=== PATIENT | male | born 1980 | race Two or more races ===

== ENCOUNTER 2021-01-18 09:21 | Outpatient (REF) | payer OTHER, SELFPAY | END 2021-01-18 09:22 | disposition home or self-care (01) | LOC: HO.LAB 09:21 | PROVIDERS: Visit Provider Internal Medicine | DX: Z20.822 Contact with and (suspected) exposure to COVID-19 (principal) | CPT/HCPCS: C9803; U0003; U0005 ==

== ENCOUNTER 2021-02-20 12:11 | Outpatient (REF) | payer OTHER, SELFPAY ==
--- NOTE | ~2021-02-20 | XR_ITS ---
EXAMINATION: XR ABDOMEN KUB CLINICAL INDICATION: Calculus of kidney COMPARISON: None TECHNIQUE: AP view of the abdomen. FINDINGS: There are 5 mm radiopaque calculi mid pole left kidney and midpole right kidney. There is scattered stool in the colon without distention. There is no organomegaly. No gross bony abnormality. XR/XR KUB IMPRESSION: Bilateral 5 mm radiopaque calculi mid pole kidney.
[2021-02-20 14:09] LABS: Urine Cytology See Pathology rpt
[2021-02-20 14:22] LABS: Appearance Urine CLEAR; Color Urine YELLOW; Glucose Urine UA NEG (NEG); Leukocyte Esterase Urine NEG (NEG); Nitrite Urine NEG (NEG); Specific Gravity - Urine 1.025 (1.005-1.025); UACC Culture Trigger NO; Urine Blood 2+ (NEG); Urine Ketones NEG (NEG); Urine Protein TRACE MG/DL (NEG-TRACE)
[2021-02-20 14:33] LABS: WBC Urine 0-2 /HPF (0-4)
[2021-02-20 14:34] LABS: Squamous Epithelial Cell Urine TRACE /LPF
== END 2021-02-20 12:12 | disposition home or self-care (01) ==
LOC: HO.LAB 12:11
PROVIDERS: PCP Internal Medicine; Visit Provider Physician Assistant
DX: R31.1 Benign essential microscopic hematuria (principal); N20.0 Calculus of kidney
CPT/HCPCS: 74018; 81001; 87086; 88112

== ENCOUNTER 2021-03-06 15:03 | Outpatient (REF) | payer OTHER, SELFPAY ==
--- NOTE | ~2021-03-06 | US_ITS ---
EXAMINATION: US RETROPERITONEAL LIMITED (RENAL ONLY) CLINICAL INFORMATION: Kidney stone. COMPARISON: KUB 02/20/2021 TECHNIQUE: Grayscale and color imaging of the kidneys FINDINGS: RIGHT KIDNEY: 11.8 x 8 x 5.6 cm (SAG x AP x TRV). The kidney is normal in size, contour, and echogenicity. Renal cortical thickness is normal. There is a linear 8 mm echogenic density in the midpole of the right kidney. This does not demonstrate shadowing or twinkle artifact. Appearance is questionable for a stone versus vascular reflector. No calculi or focal parenchymal lesions. No hydronephrosis. LEFT KIDNEY: 12.4 x 7.2 x 6.6 cm (SAG x AP x TRV). The kidney is normal in size, contour, and echogenicity. Renal cortical thickness is normal. There is a 5 mm echogenic density with twinkle artifact in the midpole suggestive of a stone. No focal parenchymal lesions. No hydronephrosis. US/US renal BI IMPRESSION: 5 mm left renal stone. Question 8 mm right renal stone versus vascular reflector..
== END 2021-03-06 15:04 | disposition home or self-care (01) ==
LOC: HO.US 15:03
PROVIDERS: PCP Internal Medicine; Visit Provider Internal Medicine
DX: N20.0 Calculus of kidney (principal)
CPT/HCPCS: 76775

== ENCOUNTER 2022-04-22 11:57 | Outpatient (REF) | payer OTHER, SELFPAY ==
[2022-04-22 13:44] LABS: Creatinine Urine 224.03 mg/dL; Microalbum/Creatinine Ratio Ur 22.7 ug/mg cr
[2022-04-22 13:52] LABS: Alanine Aminotransferase 15 U/L (0-40); Albumin Level 4.3 g/dL (3.5-5.0); Alkaline Phosphatase 67 U/L (39-117); Anion Gap 13 (12-20); Aspartate Amino Transferase 18 U/L (5-37); Bilirubin Total 0.7 mg/dL (0.0-1.0); Blood Urea Nitrogen 14 mg/dL (9-16); Calcium 9.3 mg/dL (8.4-10.2); Carbon Dioxide 28 mmol/L (22-29); Chloride 103 mmol/L (96-108); Cholesterol 241 mg/dL; Estimated Glomerular Filt Rate > 60; Glucose Fasting 122 mg/dL (60-99); HDL Cholesterol 43 mg/dL; LDL Cholesterol Calculated 181 mg/dl; Potassium 4.4 mmol/L (3.3-5.1); Sodium 140 mmol/L (135-145); Total Protein 6.7 g/dL (6.5-8.0); Triglycerides 85 mg/dL
[2022-04-22 14:09] LABS: Vitamin D 25-OH Total 10.6 ng/mL (>30)
== END 2022-04-22 11:58 | disposition home or self-care (01) ==
LOC: HO.LAB 11:57
PROVIDERS: PCP Internal Medicine; Visit Provider Internal Medicine
DX: Z00.00 Encounter for general adult medical examination without abnormal findings (principal); E78.5 Hyperlipidemia, unspecified; E11.9 Type 2 diabetes mellitus without complications; E55.9 Vitamin D deficiency, unspecified
CPT/HCPCS: 36415; 80053; 80061; 82043; 82306

== ENCOUNTER 2022-12-29 09:05 | Outpatient (AMB) | payer OTHER, SELFPAY ==
--- NOTE | 2022-12-29 09:08 | A.OFFPC_ITS ---
Vital Signs 12/29/22 09:18 Height 6 ft 1 in Weight 244 lb BMI 32.2 BP 138/100 H Blood Pressure Location Lt brachial Position Sitting Pulse 75 Pulse Source Pulse Oximeter Pulse Oximetry (%) 97 Oxygen Delivery Method Room Air Intake Visit Reasons: Annual Exam Intake Note: Patient here for an annual physical exam Pharmaceutical Scientist Required: No Accompanied by: Spouse Allergies barium sulfate Allergy (Unknown, Verified 12/29/22 09:24) inadequate response varenicline [From Chantix] Adverse Reaction (Unknown, Verified 12/29/22 09:24) Inadequate response Medication List - Last Reconciled 12/29/22 by Shelby Seay MD atorvastatin 80 mg PO BEDTIME 90 days blood sugar diagnostic (FreeStyle Lite Strips) Use 1 test strip once a day cholecalciferol (vitamin D3) 50 mcg PO DAILY 90 days lancets (FreeStyle Lancets) Twice a day As directed lisinopril 10 mg PO DAILY 90 days loratadine 10 mg PO DAILY 90 days metformin 500 mg PO BID 90 days Tobacco use date assessed: 04/28/22 Dental Screening Dental Screen Date: 12/29/22 Did you have a dental visit in the last 12 months?: No Did you have a dental problem in the last 6 months where you did not have access to dental care?: No Was dental information given to patient?: Patient has dentist HPI HPI Comments History of Present Illness Details This is a 42-year-old male with diabetes mellitus type 2 that comes for his physical exam. A1c within goal. Last diabetic eye exam was over a year ago. Denies any chest pain or shortness of breath. No fever or cough. Has not take lisinopril yet today. [facility] Medical History Dyslipidemia Callus of foot Obesity (BMI 35.0-39.9 without comorbidity) Diabetes mellitus Essential hypertension Surgical History No pertinent past surgical history Family History Father Bone cancer Diabetes Hypertension Mother Diabetes Hypertension Social History Housing: House Alcohol intake: current Alcohol intake frequency: holidays/special occasions only Alcohol type: beer Patient Tobacco Use Status: Current everyday Tobacco user Tobacco use type: Cigarette Cigarette Packs Per Day: 1 e-Cigarette/Vaping Use: Never Used Second Hand Smoke Exposure: No service: No Current occupational status: employed Current occupational exposures/hazards: No Cognitive needs: No Hearing needs: No Vision needs: No Questionnaire Thrive Questionnaire Date Thrive assessed: 04/28/22 KERVIN-7 AMB Questionnaire KERVIN-7 Date KERVIN - 7 assessed: 04/28/22 Source: Developed by Drs. Chvey Robertson, Tracey Coronado, Rogerio Caraballo and colleagues, with an educational yajaira from [employer]. Review of Systems Const All systems reviewed & are unremarkable except as noted in HPI and below Eyes Reports no additional complaints, Denies change in vision and Denies other visual disturbances Card Denies chest pain at rest, Denies chest pain with activity, Denies edema, Denies irregular heart rhythm, Denies claudication, Denies dyspnea, Denies dyspnea on exertion, Denies orthopnea, Denies paroxysmal nocturnal dyspnea and Denies slow heart rate Resp Denies cough, Denies dyspnea and Denies dyspnea on exertion GI Denies abdominal pain, Denies change in bowel habits, Denies excessive flatus, Denies nausea and Denies vomiting Denies urinary hesitancy, Denies urinary incontinence and Denies urinary urgency Musc Denies abnormal gait, Denies atrophy, Denies deformity and Denies limited range of motion Skin/Breast Denies bleeding lesions, Denies changing lesions and Denies rash Neuro Denies abnormal gait and Denies lack of coordination Physical exam (Primary Care) Vital Signs: Last Vital Signs Pulse 75 12/29/22 09:18 BP 138/100 H 12/29/22 09:18 Pulse Ox 97 12/29/22 09:18 Oxygen Delivery Method Room Air 12/29/22 09:18 BMI result Body Mass Index 32.2 Tobacco/Smoking Status: Tobacco use Status Tobacco use date assessed 04/28/22 12/29/22 09:10 Patient Tobacco Use Status Current everyday Tobacco 12/29/22 09:10 Tobacco use type Cigarette 12/29/22 09:10 e-Cigarette/Vaping Use Never Used 12/29/22 09:10 Thrive Assessment: Date of Thrive Assessment Date Thrive assessed 04/28/22 12/29/22 09:10 Const Orientation/consciousness: patient oriented x3 HENMT Head: Yes normal to inspection, Yes normocephalic and Yes atraumatic Ears: external ears normal Eyes General: appearance normal, both eyes and all related structures Eyelids: Yes eyelids normal Conjunctivae: conjunctivae normal Neck Neck: Yes normal visual inspection and Yes supple Resp Effort & Inspection: normal respiratory effort Auscultation: clear to auscultation bilaterally Cardio Jugular venous distension: no JVD Rate: regular rate Rhythm: regular rhythm Heart sounds: S1 normal heart sound present and S2 normal heart sound present GI Inspection: Yes normal to inspection Palpation (GI): Soft to palpation and nontender Auscultation: normal bowel sounds Skin General skin exam: no rashes or lesions noted Neuro General: patient oriented x3 and no focal motor deficits Extrem General: Yes full ROM Psych Appearance: grossly normal Office Procedures Flu Questionnaire Does the patient have a severe egg allergy?: No Does the patient have severe life threatening allergies?: No Does the patient have a fever or illness today?: No Has the patient ever had Guillain-Gilbert Syndrome?: No Has the patient ever had any past reaction to a flu shot?: No Results AMB Hemoglobin A1c AMB Hemoglobin A1c 6.2 % Last Edit by MARYLU Reich on 12/29/22 09:3 2 Immunizations flu vacc [id number] 6mos up(PF) 60 mcg(15 mcgx4)/0.5 mL IM syringe Performing Provider: Shelby Seay MD Performing Location: [facility] Administered by: MARYLU Reich on 12/29/22 09:46 Dose Route Admin Location Dispensed Lot Number Expiration Date [employer] 0.5 mL IM Right Deltoid 0.5 mL [id number] 08/16/23 05143-659-85 [employer] VIS Given Date VIS Provided VIS Publication Date 12/29/22 Single Vaccine 20 Eligibility Eligibility Date Funding Source Not [facility] Eligible 12/29/22 Private Results Reviewed Results Reviewed: Laboratory Last Values Hgb A1c (Clinic) 6.2 % (4.0-6.0) H 12/29/22 09:10 Assessment and Plan Assessment & Plan (1) Physical exam: Code(s): Z00.00 - Encounter for general adult medical examination without abnormal findings Plan: Repeat in a year. (2) Diabetes mellitus: Code(s): E11.9 - Type 2 diabetes mellitus without complications Plan: Continue metformin. A1c goal is equal or less than 7%. Orders: Orders Lipid Panel Today E78.5 - Hyperlipidemia, unspecified Microalbumin, Random (w Creat) Today E11.9 - Type 2 diabetes mellitus without complications Vitamin D 25-OH Total Today E55.9 - Vitamin D deficiency, unspecified Comprehensive [place]. Panel Fast Today Z00.00 - Encounter for general adult medical examination without abnormal findings AMB Hemoglobin A1c Today E11.9 - Type 2 diabetes mellitus without complications Influenza 0712-2215 Immunization Today Z23 - Encounter for immunization Referrals Ophthalmology Referral E11.9 - Type 2 diabetes mellitus without complications Medications: Refilled lisinopril 10 mg PO DAILY 90 days 90 tabs 3RF Coding Level of Care Code Est Pt Prev Care 40-64y(13721) Diagnoses Physical exam Z00.00 Diabetes mellitus E11.9 Time Spent (min) 33
[2022-12-29 09:18] VITALS: BP 138/100; PULSE 75; O2SAT 97; BMI 32.2
== END 2022-12-29 09:48 | disposition home or self-care (01) ==
PROVIDERS: Visit Provider Internal Medicine
DX: Z00.00 Encounter for general adult medical examination without abnormal findings (principal); E11.9 Type 2 diabetes mellitus without complications; Z23 Encounter for immunization; F17.210 Nicotine dependence, cigarettes, uncomplicated; E55.9 Vitamin D deficiency, unspecified
CPT/HCPCS: 83036; 90471; 90686; 99396

== ENCOUNTER 2024-01-04 09:07 | Outpatient (AMB) | payer OTHER, SELFPAY ==
[2024-01-04 09:12] VITALS: BP 138/90; PULSE 64; O2SAT 96; BMI 35.1
--- NOTE | 2024-01-04 09:12 | A.OFFPC_ITS ---
Vital Signs 01/04/24 09:12 Height 6 ft 1 in Weight 266 lb BMI 35.1 BP 138/90 H Blood Pressure Location Lt brachial Position Sitting Pulse 64 Pulse Source Pulse Oximeter Pulse Oximetry (%) 96 Oxygen Delivery Method Room Air Intake Visit Reasons: PE- NEEDS A1C + PHQ9/THRIVE Intake Note: Patient here for a physical exam Presiding Judge Required: No Accompanied by: Spouse Allergies barium sulfate Allergy (Unknown, Verified 01/04/24 09:35) inadequate response varenicline [From Chantix] Adverse Reaction (Unknown, Verified 01/04/24 09:35) Inadequate response Medication List - Last Reconciled 01/04/24 by Shelby Seay MD atorvastatin 80 mg PO BEDTIME 90 days blood sugar diagnostic (FreeStyle Lite Strips) Use 1 test strip once a day cholecalciferol (vitamin D3) 50 mcg PO DAILY 90 days lancets (FreeStyle Lancets) Twice a day As directed lisinopril 10 mg PO DAILY 90 days loratadine 10 mg PO DAILY 90 days metformin 500 mg PO BID 90 days Tobacco use date assessed: 01/04/24 Dental Screening Dental Screen Date: 01/04/24 Did you have a dental visit in the last 12 months?: No Did you have a dental problem in the last 6 months where you did not have access to dental care?: No Was dental information given to patient?: Patient has dentist HPI HPI Comments History of Present Illness Details The patient is a 43-year-old male presenting with hypertension management and smoking cessation concerns. He is here accompanied by for his physical exam. The patient has a current prescription of atorvastatin 80 mg daily and lisinopril 10 mg once daily for hypertension and hyperlipidemia management. It was discussed that there might be a need to increase lisinopril dosage to twice a day. The patient experiences blood pressure at borderline levels and has been advised to monitor it more regularly. There is a documented allergy to Barium and Chantix, and the patient has a smoking habit of approximately one pack per day. The patient reports a congested feeling, potentially resulting from work outdoors, but denies recent symptoms of fever, chest pain, or dyspnea. The patient's father had diabetes and bone cancer, while the mother lives with diabetes and hypertension. The patient drinks beer on special occasions, less than once a month. Previous interventions targeting smoking cessation included discussions about websites like [employer] and nicotine patches, addressing behavioral impacts and supportive environment necessity. [facility] Medical History Dyslipidemia Callus of foot Obesity (BMI 35.0-39.9 without comorbidity) Diabetes mellitus Essential hypertension Surgical History No pertinent past surgical history Family History Father Bone cancer Diabetes Hypertension Mother Diabetes Hypertension Social History Housing: House Alcohol intake: current Alcohol intake frequency: holidays/special occasions only Alcohol type: beer Patient Tobacco Use Status: Current everyday Tobacco user Tobacco use type: Cigarette Cigarette Packs Per Day: 1 e-Cigarette/Vaping Use: Never Used Second Hand Smoke Exposure: No service: No Current occupational status: employed Current occupational exposures/hazards: No Cognitive needs: No Hearing needs: No Vision needs: No Questionnaire PHQ-9 Over the last 2 weeks, how often have you been bothered by any of the following problems? 1. Little interest or pleasure in doing things: not at all 2. Feeling down, depressed, or hopeless: not at all 3. Trouble falling or staying asleep, or sleeping too much: not at all 4. Feeling tired or having little energy: not at all 5. Poor appetite or overeating: not at all 6. Feeling bad about yourself - or that you are a failure or have let yourself or your family down: not at all 7. Trouble concentrating on things, such as reading the newspaper or watching television: not at all 8. Moving or speaking so slowly that other people could have noticed. Or the opposite - being so fidgety or restless that you have been moving around a lot more than usual: not at all 9. Thoughts that you would be better off or of hurting yourself in some way: not at all Total score: 0 Depression Screening Interpretation: Negative Depression Screening Done: Yes 97862 - PHQ-9 Billing: Yes Source: Developed by Drs. Chevy Robertson, Tracey Coronado, Rogerio Caraballo and colleagues, with an educational yajaira from [employer] Thrive Questionnaire Date Thrive assessed: 01/04/24 I am a: Patient What is your living situation today?: I have a steady place to live Within the past 12 months, did the food you bought not last and you didn't have the money to get more?: Never true Within the past 12 months, did you worry whether your food would run out before you got money to buy more?: Never true Do you have trouble paying for medicines?: No Do you have trouble getting transportation to medical appointments?: No Do you have trouble paying your heating and electricity bill?: No Do you have trouble taking care of your child, family member or friend?: No Do you have trouble with day-to-day activities such as bathing, preparing meals, shopping, managing finances, etc.?: No Are you currently unemployed and looking for a job?: No Are you interested in more education?: No Please select the resources that you would like help with: None Currently or been in a relationship where the following occur: No concerns reported THRIVE Score: 0 AUDIT C Alcohol Use Questionnaire (AUDIT-C) 1. How often do you have a drink containing alcohol?: Monthly or less 2. How many drinks containing alcohol do you have on a typical day when you are drinking?: 1 or 2 3. How often do you have six or more drinks on one occasion?: Never Total Score: 1 Score Reviewed/Action Taken: No KERVIN-7 AMB Questionnaire KERVIN-7 Date KERVIN - 7 assessed: 01/04/24 Feeling nervous, anxious, or on edge: 0 = Not at all Not being able to stop or control worryin = Not at all Worrying too much about different things: 0 = Not at all Trouble relaxin = Not at all Being so restless that it is hard to sit still: 0 = Not at all Becoming easily annoyed or irritable: 0 = Not at all Feeling afraid as if something awful might happen: 0 = Not at all Total KERVIN-7 score (0-4 normal; 5-9 mild; 10-14 moderate; 15-21 severe): 0 Source: Developed by Drs. Chevy Robertson, Rogerio Leonard and colleagues, with an educational yajaira from [employer] KERVIN-7 Assessment Billing KERVIN-7 Assessment Tool: KERVIN-7 Assessment 11958 Review of Systems Const All systems reviewed & are unremarkable except as noted in HPI and below Card Denies chest pain at rest, Denies chest pain with activity, Denies edema, Denies irregular heart rhythm, Denies claudication, Denies orthopnea, Denies paroxysmal nocturnal dyspnea and Denies slow heart rate Physical exam (Primary Care) Vital Signs: Last Vital Signs Pulse 64 01/04/24 09:12 BP 138/90 H 01/04/24 09:12 Pulse Ox 96 01/04/24 09:12 Oxygen Delivery Method Room Air 01/04/24 09:12 BMI result Body Mass Index 35.1 BMI Assessment/Plan discussion: High BMI High, discussed plan: lifestyle, weight reduction, dietary and physical activity Tobacco/Smoking Status: Tobacco use Status Tobacco use date assessed 01/04/24 01/04/24 09:13 Patient Tobacco Use Status Current everyday Tobacco 01/04/24 09:13 Tobacco use type Cigarette 01/04/24 09:13 e-Cigarette/Vaping Use Never Used 01/04/24 09:13 Are you ready to quit: No Tobacco cessation counseling provided: Yes Items discussed: Nicotine replacement and QuitWorks Relapse Prevention: discussed the importance of a supportive environment, discussed extending NRT, discussed negative mood or depression after quitting, weight gain after smoking is common and discussed dietary, exercise and/or lifestyle changes Number of minutes spent counselin CPT code: 06647 - 4-10 Minutes PHQ-9: PHQ-9 Score PHQ-9: Total score 0 01/04/24 11:11 Depression Screening Interpretation: Negative Thrive Assessment: Date of Thrive Assessment Date Thrive assessed 01/04/24 01/04/24 09:28 Currently or been in a relationship where the following occur: No concerns reported [facility] Head: Yes normal to inspection, Yes normocephalic and Yes atraumatic Ears: external ears normal Eyes General: appearance normal, both eyes and all related structures Eyelids: Yes eyelids normal Conjunctivae: conjunctivae normal Neck Neck: Yes normal visual inspection and Yes supple Resp Effort & Inspection: normal respiratory effort Auscultation: clear to auscultation bilaterally Cardio Jugular venous distension: no JVD Rate: regular rate Rhythm: regular rhythm Heart sounds: S1 normal heart sound present and S2 normal heart sound present GI Inspection: Yes normal to inspection Palpation (GI): Soft to palpation and nontender Auscultation: normal bowel sounds Skin General skin exam: no rashes or lesions noted Neuro General: no focal motor deficits Extrem General: Yes full ROM Psych Appearance: grossly normal Office Procedures Flu Questionnaire Does the patient have a severe egg allergy?: No Does the patient have severe life threatening allergies?: No Does the patient have a fever or illness today?: No Has the patient ever had Guillain-Madison Syndrome?: No Has the patient ever had any past reaction to a flu shot?: No Results AMB Hemoglobin A1c AMB Hemoglobin A1c 7.1 % Last Edit by MARYLU Reich on 01/04/24 09:2 4 Immunizations Fluarix Triv [id number] (PF) 45 mcg (15 mcg x 3)/0.5 mL IM syringe Performing Provider: Shelby Seay MD Performing Location: [facility] Administered by: MARYLU Reich on 01/04/24 10:10 Dose Route Admin Location Dispensed Lot Number Expiration Date [facility] Insurance Solicitor 0.5 mL IM Right Deltoid 0.5 mL [id number] 08/15/24 [id number] [employer] VIS Given Date VIS Provided VIS Publication Date 01/04/24 Single Vaccine 20 Eligibility Eligibility Date Funding Source Not VFC Eligible 01/04/24 Private Boostrix Tdap 2.5 Lf unit-8 mcg-5 Lf/0.5 mL intramuscular syringe Performing Provider: Shelby Seay MD Performing Location: [facility] Administered by: MARYLU Reich on 01/04/24 10:12 Dose Route Admin Location Dispensed Lot Number Expiration Date [place] Insurance Solicitor 0.5 mL IM Left Deltoid 0.5 mL [id number] 01/01/26 [id number] [employer] VIS Given Date VIS Provided VIS Publication Date 01/04/24 Single Vaccine 20 Eligibility Eligibility Date Funding Source Not VFC Eligible 01/04/24 Private Results Reviewed Results Reviewed: Laboratory Last Values Hgb A1c (Clinic) 7.1 % (4.0-6.0) H 01/04/24 09:22 Coding Level of Care Code Est Pt Level 3 (99067) Est Pt Prev Care 40-64y(96212) Diagnoses Physical exam Z00.00 Type 2 diabetes mellitus without complication, without long-term current use of insulin E11.9 Diabetes mellitus type: type 2 Diabetes mellitus shelter insulin use: without shelter use Diabetes mellitus complication status: without complication Essential hypertension I10 Nephrolithiasis N20.0 Additional Codes KERVIN-7 Assessment Billing - KERVIN-7 Assessment Tool: KERVIN-7 Assessment 03325 ([id number]) PHQ-9 - 32510 - PHQ-9 Billing: Yes ([id number]) Vital Signs *Quality* - CPT code: 00428 - 4-10 Minutes ([id number]) Time Spent (min) 35 Assessment & Plan Assessment & Plan (1) Physical exam: Code(s): Z00.00 - Encounter for general adult medical examination without abnormal findings Category: Medical Plan: Repeat in a year. (2) Diabetes mellitus: Code(s): E11.9 - Type 2 diabetes mellitus without complications Category: Medical Qualifiers: Diabetes mellitus type: type 2 Diabetes mellitus intermodal owner operator truck driver insulin use: without intermodal owner operator truck driver use Diabetes mellitus complication status: without complication Qualified Code(s): E11.9 - Type 2 diabetes mellitus without complications Plan: Continue metformin twice a day. A1c goal is equal or less than 7%. Diabetic eye exam needed yearly. (3) Essential hypertension: Code(s): I10 - Essential (primary) hypertension Category: Medical Plan: Restart lisinopril. Blood pressure goal is equal or less than 130/80. Recheck blood pressure with nurse navigator in 3 weeks. (4) Nephrolithiasis: Code(s): N20.0 - Calculus of kidney Category: Medical Plan: Ultrasound renal ordered. Plan - Hypertension: Consider increasing lisinopril dosage to twice daily if necessary. - Diabetes: Eye examination referral due to prolonged absence of eye exams and recommendation for blood glucose monitoring twice a day due to current HbA1c level. - Smoking Cessation: Discussed supportive environment changes, behavioral impacts, and resources such as web programs and nicotine patches. - Follow-up: For potential use of an inhaler to address congestion; further diagnostics such as fasting labs planned. - Colonoscopy: Discussed as part of preventive care to proceed per patient?s consent. Patient was informed and verbally consented to the use of an ambient scribe for clinic note documentation during this visit. Orders: Orders Lipid Panel Today E78.5 - Hyperlipidemia, unspecified Comprehensive [place]. Panel Fast Today Z00.00 - Encounter for general adult medical examination without abnormal findings TDaP Immunization Today Z23 - Encounter for immunization US renal BI Today N20.0 - Calculus of kidney Microalbumin, Random (w Creat) Today R80.9 - Proteinuria, unspecified Vitamin D 25-OH Total Today E55.9 - Vitamin D deficiency, unspecified Influenza [id number] Immunization Today Z23 - Encounter for immunization AMB Hemoglobin A1c Today E11.9 - Type 2 diabetes mellitus without complications Referrals Cologuard Test Z12.11 - Encounter for screening for malignant neoplasm of colon, Z12.12 - Encounter for screening for malignant neoplasm of rectum Ophthalmology Referral E11.9 - Type 2 diabetes mellitus without complications Medications: Refilled lisinopril 10 mg PO DAILY 90 tabs 3RF 90 days
== END 2024-01-04 10:12 | disposition home or self-care (01) ==
PROVIDERS: PCP Internal Medicine; Visit Provider Internal Medicine
DX: Z00.00 Encounter for general adult medical examination without abnormal findings (principal); E11.9 Type 2 diabetes mellitus without complications; I10 Essential (primary) hypertension; N20.0 Calculus of kidney

== ENCOUNTER → 2024-01-04 09:07 | Outpatient (BNVA) | payer OTHER, SELFPAY | PROVIDERS: PCP Internal Medicine; Visit Provider Internal Medicine | DX: Z00.00 Encounter for general adult medical examination without abnormal findings (principal); Z23 Encounter for immunization; E11.9 Type 2 diabetes mellitus without complications; I10 Essential (primary) hypertension; N20.0 Calculus of kidney | CPT/HCPCS: 83036; 90471; 90472; 90656; 90715; 96127; 99212; 99396 ==

== ENCOUNTER → 2024-01-28 09:32 | Outpatient (BNVA) | payer OTHER, SELFPAY | PROVIDERS: PCP Internal Medicine ==

== ENCOUNTER 2024-05-16 10:37 | Outpatient (AMB) | payer OTHER, SELFPAY ==
--- NOTE | 2024-05-16 10:42 | A.OFFPC_ITS ---
Vital Signs 05/16/24 10:44 Height 6 ft 1 in Weight 276 lb BMI 36.4 BP 132/88 Blood Pressure Location Lt brachial Position Sitting Intake Visit Reasons: 4mth f/u Intake Note: Patient here for a 4 month follow up DM Program Writer Required: No Accompanied by: Self / Same As Patient Allergies barium sulfate Allergy (Unknown, Verified 05/16/24 10:53) inadequate response varenicline [From Chantix] Adverse Reaction (Unknown, Verified 05/16/24 10:53) Inadequate response Medication List - Last Reconciled 05/16/24 by Shelby Seay MD atorvastatin 80 mg PO BEDTIME 90 days blood sugar diagnostic (FreeStyle Lite Strips) Use 1 test strip once a day cholecalciferol (vitamin D3) 50 mcg PO DAILY 90 days lancets (FreeStyle Lancets) Twice a day As directed lisinopril 10 mg PO DAILY 90 days loratadine 10 mg PO DAILY 90 days metformin 500 mg PO BID 90 days Tobacco use date assessed: 05/16/24 Dental Screening Dental Screen Date: 05/16/24 Did you have a dental visit in the last 12 months?: No Did you have a dental problem in the last 6 months where you did not have access to dental care?: No Was dental information given to patient?: Yes HPI HPI Comments History of Present Illness Details The patient is a 43-year-old male presenting with a follow-up for the management of Type 2 Diabetes Mellitus, which is currently stabilized with Metformin but complicated by occasional gastrointestinal discomfort. His condition is presently controlled with a Hemoglobin A1c of 7.4%. He takes Metformin 500 mg tablets twice daily and prefers administration in the evening due to his eating habits. Hypertension is managed with Lisinopril 10 mg daily, with current readings being within the normal range, indicating effective control. Hypercholesterolemia is also under management with Atorvastatin 80 mg taken at nighttime. The patient admits to smoking one pack of cigarettes daily and exhibits a motivation to qu it, despite expressing difficulties in doing so. He also has multiple allergies to the environment that are stable with antihistamines as needed. On vitamin-D supplements for his low vitamin-D. [facility] Medical History (Updated 05/16/24 @ 11:59 by Shelby Seay MD) Dyslipidemia Callus of foot Obesity (BMI 35.0-39.9 without comorbidity) Diabetes mellitus Essential hypertension Surgical History No pertinent past surgical history Family History Father Bone cancer Diabetes Hypertension Mother Diabetes Hypertension Social History Housing: House Alcohol intake: current Alcohol intake frequency: holidays/special occasions only Alcohol type: beer Patient Tobacco Use Status: Current everyday Tobacco user Tobacco use type: Cigarette Cigarette Packs Per Day: 1 e-Cigarette/Vaping Use: Never Used Second Hand Smoke Exposure: No service: No Current occupational status: employed Current occupational exposures/hazards: No Cognitive needs: No Hearing needs: No Vision needs: No Questionnaire PHQ-9 Over the last 2 weeks, how often have you been bothered by any of the following problems? 1. Little interest or pleasure in doing things: not at all 2. Feeling down, depressed, or hopeless: not at all 3. Trouble falling or staying asleep, or sleeping too much: not at all 4. Feeling tired or having little energy: not at all 5. Poor appetite or overeating: not at all 6. Feeling bad about yourself - or that you are a failure or have let yourself or your family down: not at all 7. Trouble concentrating on things, such as reading the newspaper or watching television: not at all 8. Moving or speaking so slowly that other people could have noticed. Or the opposite - being so fidgety or restless that you have been moving around a lot more than usual: not at all 9. Thoughts that you would be better off or of hurting yourself in some way: not at all Total score: 0 Depression Screening Interpretation: Negative Depression Screening Done: Yes 76909 - PHQ-9 Billing: Yes Source: Developed by Drs. Chevy Robertson, Tracey Coronado, Rogerio Caraballo and colleagues, with an educational yajaira from [employer]. Thrive Questionnaire Date Thrive assessed: 05/16/24 I am a: Patient What is your living situation today?: I have a steady place to live Within the past 12 months, did the food you bought not last and you didn't have the money to get more?: Never true Within the past 12 months, did you worry whether your food would run out before you got money to buy more?: Never true Do you have trouble paying for medicines?: No Do you have trouble getting transportation to medical appointments?: No Do you have trouble paying your heating and electricity bill?: No Do you have trouble taking care of your child, family member or friend?: No Do you have trouble with day-to-day activities such as bathing, preparing meals, shopping, managing finances, etc.?: No Are you currently unemployed and looking for a job?: No Are you interested in more education?: No Please select the resources that you would like help with: None Currently or been in a relationship where the following occur: No concerns reported THRIVE Score: 0 AUDIT C Alcohol Use Questionnaire (AUDIT-C) 1. How often do you have a drink containing alcohol?: Monthly or less 2. How many drinks containing alcohol do you have on a typical day when you are drinking?: 1 or 2 3. How often do you have six or more drinks on one occasion?: Never Total Score: 1 Score Reviewed/Action Taken: No KERVIN-7 AMB Questionnaire KERVIN-7 Date KERVIN - 7 assessed: 05/16/24 Feeling nervous, anxious, or on edge: 0 = Not at all Not being able to stop or control worryin = Not at all Worrying too much about different things: 0 = Not at all Trouble relaxin = Not at all Being so restless that it is hard to sit still: 0 = Not at all Becoming easily annoyed or irritable: 0 = Not at all Feeling afraid as if something awful might happen: 0 = Not at all Total KERVIN-7 score (0-4 normal; 5-9 mild; 10-14 moderate; 15-21 severe): 0 Source: Developed by Drs. Chevy Robertson, Tracey Coronado, Rogerio Caraballo and colleagues, with an educational yajaira from [employer]. KERVIN-7 Assessment Billing KERVIN-7 Assessment Tool: KERVIN-7 Assessment 16224 Review of Systems Const All systems reviewed & are unremarkable except as noted in HPI and below Card Denies chest pain at rest, Denies chest pain with activity, Denies edema, Denies irregular heart rhythm, Denies claudication, Denies dyspnea, Denies dyspnea on exertion, Denies orthopnea, Denies paroxysmal nocturnal dyspnea and Denies slow heart rate Resp Denies cough, Denies dyspnea and Denies dyspnea on exertion GI Denies abdominal pain, Denies change in bowel habits, Denies excessive flatus, Denies nausea and Denies vomiting Physical exam (Primary Care) Vital Signs: Last Vital Signs BP 132/88 05/16/24 10:44 BMI result Body Mass Index 36.4 BMI Assessment/Plan discussion: High BMI High, discussed plan: lifestyle, weight reduction, dietary and physical activity Tobacco/Smoking Status: Tobacco use Status Tobacco use date assessed 05/16/24 05/16/24 10:52 Patient Tobacco Use Status Current everyday Tobacco 05/16/24 10:45 Tobacco use type Cigarette 05/16/24 10:45 e-Cigarette/Vaping Use Never Used 05/16/24 10:45 PHQ-9: PHQ-9 Score PHQ-9: Total score 0 05/16/24 10:55 Depression Screening Interpretation: Negative Thrive Assessment: Date of Thrive Assessment Date Thrive assessed 05/16/24 05/16/24 10:45 Currently or been in a relationship where the following occur: No concerns reported Resp Effort & Inspection: normal respiratory effort Auscultation: clear to auscultation bilaterally Cardio Jugular venous distension: no JVD Rate: regular rate Rhythm: regular rhythm Heart sounds: S1 normal heart sound present and S2 normal heart sound present Extrem General: Yes full ROM Results AMB Hemoglobin A1c AMB Hemoglobin A1c 7.4 % Last Edit by MARYLU Reich on 05/16/24 10:5 7 Results Reviewed Results Reviewed: Laboratory Last Values Hgb A1c (Clinic) 7.4 % (4.0-6.0) H 05/16/24 10:42 Coding Level of Care Code Est Pt Level 4 (41527) Complex EM visit Add On G2211 Diagnoses Type 2 diabetes mellitus without complication, without long-term current use of insulin E11.9 Diabetes mellitus type: type 2 Diabetes mellitus longterm insulin use: without longterm use Diabetes mellitus complication status: without complication Essential hypertension I10 Dyslipidemia E78.5 Allergies T78.40XA Hypovitaminosis D E55.9 Additional Codes KERVIN-7 Assessment Billing - KERVIN-7 Assessment Tool: KERVIN-7 Assessment 95033 ([id number]) PHQ-9 - 12989 - PHQ-9 Billing: Yes ([id number]) Time Spent (min) 23 Assessment & Plan Assessment & Plan (1) Diabetes mellitus: Code(s): E11.9 - Type 2 diabetes mellitus without complications Category: Medical Qualifiers: Diabetes mellitus type: type 2 Diabetes mellitus longterm insulin use: without joint terminal attack controller use Diabetes mellitus complication status: without complication Qualified Code(s): E11.9 - Type 2 diabetes mellitus without complications (2) Essential hypertension: Code(s): I10 - Essential (primary) hypertension Category: Medical (3) Dyslipidemia: Code(s): E78.5 - Hyperlipidemia, unspecified Category: Medical (4) Allergies: Code(s): T78.40XA - Allergy, unspecified, initial encounter Category: Medical (5) Hypovitaminosis D: Code(s): E55.9 - Vitamin D deficiency, unspecified Category: Medical Plan Continue the current regimen of Metformin 500 mg twice daily and Lisinopril 10 mg daily for controlling diabetes and hypertension. Maintain Atorvastatin 80 mg at night for hypercholesterolemia management. Explore [employer] as an aid for smoking cessation, respecting the patient's interest and motivation in quitting. Instructions provided for routine laboratory evaluations this week to appraise the management efficacy and adjust as clinically indicated. Patient was informed and verbally consented to the use of an ambient scribe for clinic note documentation during this visit. During the consultation, I discussed the management of Type 2 Diabetes Mellitus, emphasizing the importance of glucose control and the patient's A1c goal, with ongoing Metformin administration. The management of hypertension with Lisinopril and hypercholesterolemia with Atorvastatin was confirmed to be effective with a dherence noted. I extensively addressed the need for smoking cessation given the patient?s interest, recommending the [employer] program as a valuable option. Routine instructions for taking Metformin with meals were reinforced to alleviate gastrointestinal upset. Orders: Orders AMB Hemoglobin A1c Today E11.9 - Type 2 diabetes mellitus without complications Lipid Panel Today E78.5 - Hyperlipidemia, unspecified Microalbumin, Random (w Creat) Today R80.9 - Proteinuria, unspecified Vitamin D 25-OH Total Today E55.9 - Vitamin D deficiency, unspecified Comprehensive [place]. Panel Fast Today E11.9 - Type 2 diabetes mellitus without complications Patient Instructions: - Continue taking Metformin 500 mg twice daily with meals to avoid stomach upset. - Keep taking Lisinopril 10 mg daily for blood pressure control. - Maintain Atorvastatin 80 mg nighttime dosing for cholesterol. - Consider using [employer] if serious about quitting smoking. - Complete prescribed lab work this week. - Monitor blood pressure regularly. - Report any changes in symptoms or new concerns.
[2024-05-16 10:44] VITALS: BP 132/88; BMI 36.4
--- OUTSIDE RECORDS SUMMARY | 2024-05-16 11:56 | XMS_ITS | Clinical Summary ---
Author Organization [address] [place] [address] Address [address] [place] [address] Phone Care Team Providers Care Newspaper Deliverer Name Role Phone Shelby Seay MD Primary Care Provider Allergies No known active allergies Medications metFORMIN (GLUCOPHAGE) 500 mg tablet Take 1 Tablet by mouth 2 times daily (with meals). Active atorvastatin (LIPITOR) 80 mg tablet Take 1 tablet (80 mg total) by mouth 1 (one) time each day. Active LISINOPRIL ORAL Take by mouth. Active cholecalciferol (VITAMIN D-3) 50 mcg (2,000 unit) capsule Take by mouth. Active Encounters Date Type Department Care Team Description 04/19/2024 1:45 PM EST Office Visit Orthopedic Surgery [address] [id number] Todd Kemp DPM Acquired hammer toe of right foot (Primary Dx); Hammer toe of left foot; Dermatofibroma of right lower leg; Metatarsalgia of both feet; Dermatofibroma of left lower leg; Dermatophytosis of nail; Ingrowing nail; Diabetic mononeuropathy simplex (CMS/HCC); Type II diabetes mellitus with peripheral circulatory disorder (CMS/HCC); Pain in toe of left foot [M79.675]; Pain in toe of right foot [M79.674] 03/03/2024 9:45 AM EST Office Visit [facility] [address] [place] [phone] Todd Kemp DPM Hammer toe of left foot (Primary Dx); Acquired hammer toe of right foot; Dermatofibroma of right lower leg; Dermatofibroma of left lower leg; Metatarsalgia of both feet; Type II diabetes mellitus with peripheral circulatory disorder (CMS/HCC); Diabetic mononeuropathy simplex (CMS/HCC); Ingrowing nail from Last 3 Months Social History Tobacco Use Types Packs/Day Years Used Date Smoking Tobacco: Never Assessed Sex and Gender Information Value Date Recorded Sex Assigned at Not on file Legal Sex Male 4:56 PM EST Gender Identity Not on file Sexual Orientation Not on file Last Filed Vital Signs Vital Sign Reading Time Taken Comments Blood Pressure - - Pulse - - Temperature - - Respiratory Rate - - Oxygen Saturation - - Inhaled Oxygen Concentration - - Weight 116 kg (256 lb) 04/19/2024 1:30 PM EST Height 185.4 cm (6' 0.99 ) 04/19/2024 1:30 PM ES T Body Mass Index 33.78 04/19/2024 1:30 PM EST Plan of Treatment Upcoming Encounters Date Type Department Care Team (Late st Contact Info) Description 06/21/2024 1:30 PM EDT Office Visit Orthopedic Surgery - [place] [id number] [phone] Todd Kemp, DPM [address] [address] Health Maintenance Due Date Last Done Comments Diabetes: Annual GFR (Glomerular Filtration Rate) 1978 Diabetes: Annual Foot Exam 1988 Diabetes: Annual Retina Eye Exam 1988 Hepatitis B Vaccines (1 of 3 - 19+ 3-dose series) 1997 Pneumococcal Vaccine: Pediatrics (0 to 5 Years) and At-Risk Patients (6 to 64 Years) (1 of 2 - PCV) 1997 Cholesterol Screening (Lipid Panel) 01/15/2022 Colorectal Cancer Screening: Colonoscopy 01/15/2022 Depression Screening 01/15/2022 HIV Screening 01/15/2022 Hepatitis C Screening 01/15/2022 Social Influencers of Health Screening 01/15/2022 COVID-19 Vaccine ( season) 2023 12/19/2020, 06/09/2020, 05/19/2020 Diabetes: Annual Urine Albumin-Creatinine Ratio (uACR) 12/19/2023 Diabetes: Blood Sugar Control Test (HGBA1C) 12/19/2023 DTaP,Tdap,and Td Vaccines (2 - Td or Tdap) 01/03/2034 01/04/2024 Influenza Vaccine Completed 01/04/2024, , 12/23/2021, Additional history exists HIB Vaccines Aged Out No longer eligi ble based on patient's age to complete this topic HPV Vaccines Aged Out No longer eligi ble based on patient's age to complete this topic Hepatitis A Vaccines Aged Out No long er eligible based on patient's age to complete this topic IPV Vaccines Aged Out No longer eligi ble based on patient's age to complete this topic MMR Vaccines Aged Out No longer eligi ble based on patient's age to complete this topic Meningococcal ACWY Vaccine Aged Out N o longer eligible based on patient's age to complete this topic Meningococcal B Vacine Aged Out No lo nger eligible based on patient's age to complete this topic RSV Immunization Patients Under 20 months Aged Out No longer eligible based on patient's age to complete this topic Varicella Vaccines Aged Out No longer eligible based on patient's age to complete this topic Insurance [employer] Care Teams Newspaper Deliverer Relationship Specialty Start Date End Date Shelby Seay MD [address] [place] [address] , [address] [facility] D/B/A: [facility] [place], [place] PCP - General 11/21/22
== END 2024-05-16 11:08 | disposition home or self-care (01) ==
LOC: HO.HMCH 10:38
PROVIDERS: PCP Internal Medicine; Visit Provider Internal Medicine
DX: E11.9 Type 2 diabetes mellitus without complications (principal); I10 Essential (primary) hypertension; E78.5 Hyperlipidemia, unspecified; T78.40XA Allergy, unspecified, initial encounter; E55.9 Vitamin D deficiency, unspecified

== ENCOUNTER → 2024-05-16 10:37 | Outpatient (BNVA) | payer OTHER, SELFPAY | PROVIDERS: PCP Internal Medicine; Visit Provider Internal Medicine | DX: E11.9 Type 2 diabetes mellitus without complications (principal); I10 Essential (primary) hypertension; E78.5 Hyperlipidemia, unspecified; E55.9 Vitamin D deficiency, unspecified; T78.40XD Allergy, unspecified, subsequent encounter | CPT/HCPCS: 83036; 96127; 99212 ==

== ENCOUNTER 2024-09-20 10:39 | Outpatient (REF) | payer OTHER, SELFPAY ==
--- OUTSIDE RECORDS SUMMARY | 2024-09-20 11:20 | XMS_ITS | Clinical Summary ---
Author Organization [address] [facility] Address [address] [place] [address] Phone Care Team Providers Care Pharmacy Stock Clerk Name Role Phone Shelby Seay MD Primary Care Provider [phone] Allergies No known active allergies Medications metFORMIN (GLUCOPHAGE) 500 mg tablet Take 1 Tablet by mouth 2 times daily (with meals). Active atorvastatin (LIPITOR) 80 mg tablet Take 1 tablet (80 mg total) by mouth 1 (one) time each day. Active LISINOPRIL ORAL Take by mouth. Active cholecalciferol (VITAMIN D-3) 50 mcg (2,000 unit) capsule Take by mouth. Active Social History Tobacco Use Types Packs/Day Years [...] 04/19/2024 1:30 PM EST Plan of Treatment Health Maintenance Due Date Last Done Comments Hepatitis B Vaccines (1 of 3 - 19+ 3-dose series) 1997 Pneumococcal Vaccine: Pediatrics (0 to 5 Years) and At-Risk Patients (6 to 49 Years) (1 of 2 - PCV) 1997 Cholesterol Screening (Lipid Panel) 01/15/2022 Colorectal Cancer Screening: Colonoscopy 01/15/2022 HIV Screening 01/15/2022 Hepatitis C Screening 01/15/2022 Social Influencers of Health Screening 01/15/2022 COVID-19 Vaccine ( season) 2023 12/19/2020, 06/09/2020, 05/19/2020 Depression Screening 02/17/2024 Influenza Vaccine (#1) 2024 , 12/29/2022, 12/23/2021, Additional history exists DTaP,Tdap,and Td Vaccines (2 - Td or Tdap) 01/03/2034 01/04/2024 HIB Vaccines Aged Out No longer eligi [...] age to complete this topic Meningococcal B Vaccine Aged Out No l onger eligible based on patient's age to complete this topic RSV Immunization Patients Under 20 months Aged Out No longer eligible based on patient's age to complete this topic Varicella Vaccines Aged Out No longer eligible based on patient's age to complete this topic Insurance [employer] Care Teams Pharmacy Stock Clerk Relationship Specialty Start Date End Date Shelby Seay MD [address] [facility] , [address] [facility] D/B/A: [facility] [place] PCP - General 11/21/22
[2024-09-20 12:01] LABS: Albumin Level 4.5 g/dL (3.5-5.0); Alkaline Phosphatase 82 U/L (39-117); Anion Gap 8 (12-20); Aspartate Amino Transferase 27 U/L (5-37); Blood Urea Nitrogen 14 mg/dL (9-16); Calcium 9.1 mg/dL (8.4-10.2); Carbon Dioxide 27 mmol/L (22-29); Chloride 108 mmol/L (96-108); Cholesterol 154 mg/dL (<200); Estimated Glomerular Filt Rate > 60; HDL Cholesterol 35 mg/dL (>40); Potassium 4.2 mmol/L (3.3-5.1); Sodium 139 mmol/L (135-145); Total Protein 7.1 g/dL (6.5-8.0); Triglycerides 89 mg/dL (<150)
[2024-09-20 12:42] LABS: Microalbum/Creatinine Ratio Ur 44.3 ug/mg cr (<30)
[2024-09-20 13:29] LABS: Alanine Aminotransferase 33 U/L (0-40)
== END 2024-09-20 10:40 | disposition home or self-care (01) ==
LOC: HO.LAB 10:39
PROVIDERS: Visit Provider Internal Medicine
DX: Z00.00 Encounter for general adult medical examination without abnormal findings (principal); E78.5 Hyperlipidemia, unspecified; E55.9 Vitamin D deficiency, unspecified; R80.9 Proteinuria, unspecified
CPT/HCPCS: 36415; 80053; 80061; 82043; 82306; 82570

== ENCOUNTER 2024-10-03 14:12 | Outpatient (AMB) | payer OTHER, SELFPAY ==
--- NOTE | 2024-10-03 14:15 | MHC.PC.OV ---
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 Accompanied by: Self / Same As Patient Allergies barium sulfate Allergy (Unknown, Verified 10/03/24 14:28) inadequate response varenicline (From Chantix) Adverse Reaction (Unknown, Verified 10/03/24 14:28) Inadequate response Medication List - Last Reconciled 10/03/24 by Shelby Seay MD atorvastatin 80 mg PO BEDTIME 90 days blood sugar diagnostic (FreeStyle Lite Strips) Use 1 test strip once a day cholecalciferol (vitamin D3) 50 mcg PO DAILY 90 days lancets (FreeStyle Lancets) Twice a day As directed lisinopril 10 mg PO DAILY 90 days metformin 500 mg PO BID 90 days Tobacco use date assessed: 10/03/24 Dental Screening Dental Screen Date: 10/03/24 Did you have a dental visit in the last 12 months?: No Did you have a dental problem in the last 6 months where you did not have access to dental care?: No Was dental information given to patient?: No HPI HPI Comments History of Present Illness Details The patient is a 44-year-old male presenting with diabetes management concerns. His Hemoglobin A1c level is currently at 8.5%, which is above the target of less than 7%. The patient's blood glucose level was recorded at 186 mg/dL. The patient is also managing hyperlipidemia, with recent improvements noted in his cholesterol levels. His LDL cholesterol has decreased from 181 mg/dL to 102 mg/dL. The patient has a history of hypertension, currently managed with Lisinopril 10 mg daily. His blood pressure was recorded at 140/90 mmHg during the visit. [facility] Medical History Dyslipidemia Callus of foot Obesity (BMI 35.0-39.9 without comorbidity) Diabetes mellitus Essential hypertension Surgical History No pertinent past surgical history Family History Father Bone cancer Diabetes Hypertension Mother Diabetes Hypertension Social History Housing: House Alcohol intake: current Alcohol intake frequency: holidays/special occasions only Alcohol type: beer Patient Tobacco Use Status: Current everyday Tobacco user Tobacco use type: Cigarette Cigarette Packs Per Day: 1 e-Cigarette/Vaping Use: Never Used Second Hand Smoke Exposure: No service: No Current occupational status: employed Current occupational exposures/hazards: No Cognitive needs: No Hearing needs: No Vision needs: No Questionnaire PHQ-9 Over the last 2 weeks, how often have you been bothered by any of the following problems? 1. Little interest or pleasure in doing things: not at all 2. Feeling down, depressed, or hopeless: not at all 3. Trouble falling or staying asleep, or sleeping too much: not at all 4. Feeling tired or having little energy: not at all 5. Poor appetite or overeating: not at all 6. Feeling bad about yourself - or that you are a failure or have let yourself or your family down: not at all 7. Trouble concentrating on things, such as reading the newspaper or watching television: not at all 8. Moving or speaking so slowly that other people could have noticed. Or the opposite - being so fidgety or restless that you have been moving around a lot more than usual: not at all 9. Thoughts that you would be better off or of hurting yourself in some way: not at all Total score: 0 Depression Screening Interpretation: Negative Depression Screening Done: Yes 58265 - PHQ-9 Billing: Yes Source: Developed by Drs. Chevy Robertson, Tracey Coronado, Rogerio Caraballo and colleagues, with an educational yajaira from [employer]. Thrive Questionnaire Date Thrive assessed: 10/03/24 I am a: Patient What is your living situation today?: I have a steady place to live Within the past 12 months, did the food you bought not last and you didn't have the money to get more?: Never true Within the past 12 months, did you worry whether your food would run out before you got money to buy more?: Never true Do you have trouble paying for medicines?: Yes Do you have trouble getting transportation to medical appointments?: No Do you have trouble paying your heating and electricity bill?: No Do you have trouble taking care of your child, family member or friend?: No Do you have trouble with day-to-day activities such as bathing, preparing meals, shopping, managing finances, etc.?: No Are you currently unemployed and looking for a job?: No Are you interested in more education?: No Please select the resources that you would like help with: None Currently or been in a relationship where the following occur: No concerns reported THRIVE Score: 0 AUDIT C Alcohol Use Questionnaire (AUDIT-C) 1. How often do you have a drink containing alcohol?: Monthly or less 2. How many drinks containing alcohol do you have on a typical day when you are drinking?: 3 or 4 3. How often do you have six or more drinks on one occasion?: Never Total Score: 2 KERVIN-7 AMB Questionnaire KERVIN-7 Date KERVIN - 7 assessed: 10/03/24 Feeling nervous, anxious, or on edge: 0 = Not at all Not being able to stop or control worryin = Not at all Worrying too much about different things: 0 = Not at all Trouble relaxin = Not at all Being so restless that it is hard to sit still: 0 = Not at all Becoming easily annoyed or irritable: 0 = Not at all Feeling afraid as if something awful might happen: 0 = Not at all Total KERVIN-7 score (0-4 normal; 5-9 mild; 10-14 moderate; 15-21 severe): 0 Source: Developed by Drs. Chevy Robertson, Tracey Coronado, Rogerio Caraballo and colleagues, with an educational yajaira from [employer]. KERVIN-7 Assessment Billing KERVIN-7 Assessment Tool: KERVIN-7 Assessment 47391 Review of Systems Const All systems reviewed & are unremarkable except as noted in HPI and below Card Denies chest pain at rest, Denies chest pain with activity, Denies edema, Denies irregular heart rhythm, Denies claudication, Denies dyspnea, Denies dyspnea on exertion, Denies orthopnea, Denies paroxysmal nocturnal dyspnea and Denies slow heart rate Resp Denies cough, Denies dyspnea and Denies dyspnea on exertion GI Denies abdominal pain, Denies change in bowel habits, Denies excessive flatus, Denies nausea and Denies vomiting Physical exam (Primary Care) Vital Signs: Last Vital Signs Temp 97.1 F 10/03/24 14:16 Pulse 60 10/03/24 14:16 Resp 18 10/03/24 14:16 BP 140/90 H 10/03/24 14:16 Pulse Ox 97 10/03/24 14:16 Oxygen Delivery Method Room Air 10/03/24 14:16 BMI result Body Mass Index 36.2 BMI Assessment/Plan discussion: High BMI High, discussed plan: lifestyle, weight reduction, dietary and physical activity Tobacco/Smoking Status: Tobacco use Status Tobacco use date assessed 10/03/24 10/03/24 14:21 Patient Tobacco Use Status Current everyday Tobacco 10/03/24 14:16 Tobacco use type Cigarette 10/03/24 14:16 e-Cigarette/Vaping Use Never Used 10/03/24 14:16 Are you ready to quit: No Tobacco cessation counseling provided: Yes Items discussed: Nicotine replacement and QuitWorks Relapse Prevention: discussed the importance of a supportive environment and discussed negative mood or depression after quitting Number of minutes spent counselin PHQ-9: PHQ-9 Score PHQ-9: Total score 0 10/03/24 14:32 Depression Screening Interpretation: Negative Thrive Assessment: Date of Thrive Assessment Date Thrive assessed 10/03/24 10/03/24 14:21 Currently or been in a relationship where the following occur: No concerns reported Resp Effort & Inspection: normal respiratory effort Auscultation: clear to auscultation bilaterally Cardio Jugular venous distension: no JVD Rate: regular rate Rhythm: regular rhythm Heart sounds: S1 normal heart sound present and S2 normal heart sound present Extrem General: Yes full ROM Results AMB Hemoglobin A1c AMB Hemoglobin A1c 8.5 % Last Edit by Eden Gupta MA on 10/03/24 14:34 Coding Level of Care Code Est Pt Level 4 (64675) Complex EM visit Add On G2211 Diagnoses Essential hypertension I10 Dyslipidemia E78.5 Type 2 diabetes mellitus without complication, without long-term current use of insulin E11.9 Diabetes mellitus type: type 2 Diabetes mellitus chcf insulin use: without terminal operations manager use Diabetes mellitus complication status: without complication Hypovitaminosis D E55.9 Additional Codes PHQ-9 - 43909 - PHQ-9 Billing: Yes ([id number]) KERVIN-7 Assessment Billing - KERVIN-7 Assessment Tool: KERVIN-7 Assessment 81952 ([id number]) Time Spent (min) 21 Assessment & Plan Assessment & Plan (1) Essential hypertension: Code(s): I10 - Essential (primary) hypertension Category: Medical (2) Dyslipidemia: Code(s): E78.5 - Hyperlipidemia, unspecified Category: Medical (3) Diabetes mellitus: Code(s): E11.9 - Type 2 diabetes mellitus without complications Category: Medical Qualifiers: Diabetes mellitus type: type 2 Diabetes mellitus chcf insulin use: without terminal operations manager use Diabetes mellitus complication status: without complication Qualified Code(s): E11.9 - Type 2 diabetes mellitus without complications (4) Hypovitaminosis D: Code(s): E55.9 - Vitamin D deficiency, unspecified Category: Medical Plan The patient's diabetes management plan includes increasing the dosage of Metformin from 1000 mg to 1500 mg daily to better control blood glucose levels. The patient is advised to continue taking Atorvastatin 80 mg for hyperlipidemia, as it has effectively reduced LDL cholesterol levels. For hypertension, the patient will continue with Lisinopril 10 mg daily, with a follow-up blood pressure check in three weeks. If blood pressure remains elevated, the Lisinopril dosage may be increased to 20 mg. Patient was informed and verbally consented to the use of an ambient scribe for clinic note documentation during this visit. Orders: Orders AMB Hemoglobin A1c Today Z13.9 - Encounter for screening, unspecified Vitamin D 25-OH Total Today E55.9 - Vitamin D deficiency, unspecified Microalbumin, Random (w Creat) Today R80.9 - Proteinuria, unspecified Lipid Panel Today E78.5 - Hyperlipidemia, unspecified Comprehensive [place]. Panel Fast Today E11.9 - Type 2 diabetes mellitus without complications Medications: Changed From metformin 500 mg PO BID 90 days 180 tabs 3RF To metformin 500 mg PO TID 270 tabs 3RF 90 days
[2024-10-03 14:16] VITALS: BP 140/90; PULSE 60; RESP 18; TEMP 36.2; O2SAT 97; BMI 36.2
--- OUTSIDE RECORDS SUMMARY | 2024-10-03 14:59 | XMS_ITS | Clinical Summary ---
Author Organization [address] [facility] Address [address] [place] [address] Phone Care Team Providers Care Storeroom Attendant Name Role Phone Shelby Seay MD Primary Care Provider [phone] Allergies No known active allergies Medications metFORMIN [...] this topic Insurance COMMERCIAL GENERIC Care Teams Storeroom Attendant Relationship Specialty Start Date End Date Shelby Seay MD 2 [facility] , [address] [facility] Physician Associ D/B/A: [facility] [place] PCP - General 11/21/22
== END 2024-10-03 14:38 | disposition home or self-care (01) ==
LOC: HO.HMCH 14:13
PROVIDERS: PCP Internal Medicine; Visit Provider Internal Medicine
DX: I10 Essential (primary) hypertension (principal); E78.5 Hyperlipidemia, unspecified; E11.9 Type 2 diabetes mellitus without complications; E55.9 Vitamin D deficiency, unspecified; Z13.9 Encounter for screening, unspecified

== ENCOUNTER → 2024-10-03 14:12 | Outpatient (BNVA) | payer OTHER, SELFPAY | PROVIDERS: PCP Internal Medicine; Visit Provider Internal Medicine | DX: I10 Essential (primary) hypertension (principal); E11.9 Type 2 diabetes mellitus without complications; E78.5 Hyperlipidemia, unspecified; E55.9 Vitamin D deficiency, unspecified; R80.9 Proteinuria, unspecified | CPT/HCPCS: 83036; 96127; 99212 ==

== ENCOUNTER → 2024-10-20 09:50 | Outpatient (BNVA) | payer OTHER, SELFPAY | PROVIDERS: PCP Internal Medicine | DX: Z01.30 Encounter for examination of blood pressure without abnormal findings (principal) | CPT/HCPCS: 99211 ==

== ENCOUNTER 2025-01-09 09:02 | Outpatient (AMB) | payer OTHER, SELFPAY ==
--- NOTE | 2025-01-09 09:30 | A.OFFPC_ITS ---
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 Accompanied by: Allergies barium sulfate Allergy (Unknown, Verified 01/09/25 09:47) inadequate response varenicline (From Chantix) Adverse Reaction (Unknown, Verified 01/09/25 09:47) Inadequate response Medication List - Last Reconciled 01/09/25 by Shelby Seay MD atorvastatin 80 mg PO BEDTIME 90 days blood sugar diagnostic (FreeStyle Lite Strips) Use 1 test strip once a day cholecalciferol (vitamin D3) 50 mcg PO DAILY 90 days lancets (FreeStyle Lancets) Twice a day As directed lisinopril 10 mg PO DAILY 90 days metformin 500 mg PO TID 90 days Tobacco use date assessed: 01/09/25 Dental Screening Dental Screen Date: 01/09/25 Did you have a dental visit in the last 12 months?: Yes Did you have a dental problem in the last 6 months where you did not have access to dental care?: No Was dental information given to patient?: Patient has dentist HPI HPI Comments History of Present Illness Details The patient is a 44 year old individual presenting for a physical exam and management of chronic conditions. The patient has a history of diabetes mellitus, with a recent hemoglobin A1c of 8.6%, indicating poor control. The patient is currently taking three tablets of an unspecified oral medication once daily. Dietary history includes excessive consumption of sweets and drinking 5-6 cups of coffee with [id number] daily. The patient also has a history of hyperlipidemia, which was previously uncontrolled but has improved, with the last cholesterol level at 102 mg/dL, down from 181 mg/dL. Lab work has also shown protein in the urine. Known allergies include barium sulfate and Chantix. For health maintenance, a Cologuard test was completed in 2023. The patient's vitamin D level is normal. The patient does not drink alcohol or soda. The patient is due for an influenza vaccination, which was recommended. Fasting labs will be ordered to check hemoglobin and vitamin levels. Colon cancer screening is up to date with a Cologuard test completed in 2023. [facility] Medical History (Updated 01/09/25 @ 10:23 by Shelby Seay MD) Dyslipidemia Callus of foot Obesity (BMI 35.0-39.9 without comorbidity) Diabetes mellitus Essential hypertension Surgical History No pertinent past surgical history Family History Father Bone cancer Diabetes Hypertension Mother Diabetes Hypertension Social History Housing: House Alcohol intake: current Alcohol intake frequency: holidays/special occasions only Alcohol type: beer Patient Tobacco Use Status: Current everyday Tobacco user Tobacco use type: Cigarette Cigarette Packs Per Day: 1 e-Cigarette/Vaping Use: Never Used Second Hand Smoke Exposure: No service: No Current occupational status: employed Current occupational exposures/hazards: No Cognitive needs: No Hearing needs: No Vision needs: No Questionnaire Thrive Questionnaire Date Thrive assessed: 10/03/24 I am a: Patient What is your living situation today?: I have a steady place to live Within the past 12 months, did the food you bought not last and you didn't have the money to get more?: Never true Within the past 12 months, did you worry whether your food would run out before you got money to buy more?: Never true Do you have trouble paying for medicines?: Yes Do you have trouble getting transportation to medical appointments?: No Do you have trouble paying your heating and electricity bill?: No Do you have trouble taking care of your child, family member or friend?: No Do you have trouble with day-to-day activities such as bathing, preparing meals, shopping, managing finances, etc.?: No Are you currently unemployed and looking for a job?: No Are you interested in more education?: No Please select the resources that you would like help with: None Currently or been in a relationship where the following occur: No concerns reported THRIVE Score: 0 KERVIN-7 AMB Questionnaire KERVIN-7 Date KERVIN - 7 assessed: 10/03/24 Source: Developed by Drs. Chevy Robertson, Tracey Coronado, Rogerio Caraballo and colleagues, with an educational yajaira from [employer]. Review of Systems Const All systems reviewed & are unremarkable except as noted in HPI and below Card Denies chest pain at rest, Denies chest pain with activity, Denies edema, Denies irregular heart rhythm, Denies claudication, Denies dyspnea, Denies dyspnea on exertion, Denies orthopnea, Denies paroxysmal nocturnal dyspnea and Denies slow heart rate Resp Denies cough, Denies dyspnea and Denies dyspnea on exertion GI Denies abdominal pain, Denies change in bowel habits, Denies excessive flatus, Denies nausea and Denies vomiting Physical exam (Primary Care) Vital Signs: Last Vital Signs Pulse 75 01/09/25 09:31 Resp 18 01/09/25 09:31 BP 138/74 01/09/25 09:31 Pulse Ox 98 01/09/25 09:31 Oxygen Delivery Method Room Air 01/09/25 09:31 BMI result Body Mass Index 36.1 BMI Assessment/Plan discussion: High BMI High, discussed plan: lifestyle, weight reduction, dietary and physical activity Tobacco/Smoking Status: Tobacco use Status Tobacco use date assessed 01/09/25 01/09/25 09:33 Patient Tobacco Use Status Current everyday Tobacco 01/09/25 09:33 Tobacco use type Cigarette 01/09/25 09:33 e-Cigarette/Vaping Use Never Used 01/09/25 09:33 Thrive Assessment: Date of Thrive Assessment Date Thrive assessed 10/03/24 01/09/25 09:33 Currently or been in a relationship where the following occur: No concerns reported [facility] Head: Yes normal to inspection, Yes normocephalic and Yes atraumatic Ears: external ears normal Eyes General: appearance normal, both eyes and all related structures Eyelids: Yes eyelids normal Conjunctivae: conjunctivae normal Neck Neck: Yes normal visual inspection and Yes supple Resp Effort & Inspection: normal respiratory effort Auscultation: clear to auscultation bilaterally Cardio Jugular venous distension: no JVD Rate: regular rate Rhythm: regular rhythm Heart sounds: S1 normal heart sound present and S2 normal heart sound present GI Inspection: Yes normal to inspection Palpation (GI): Soft to palpation and nontender Auscultation: normal bowel sounds Skin General skin exam: no rashes or lesions noted Neuro General: no focal motor deficits Extrem General: Yes full ROM Psych Appearance: grossly normal Office Procedures Flu Questionnaire Does the patient have a severe egg allergy?: No Does the patient have severe life threatening allergies?: No Does the patient have a fever or illness today?: No Has the patient ever had Guillain-[place] Syndrome?: No Has the patient ever had any past reaction to a flu shot?: No Immunizations Fluarix [id number] (PF) 45 mcg (15 mcg x 3)/0.5 mL IM syringe Performing Provider: Shelby Seay MD [facility] Administered by: Ofelia Mcrae CMA on 01/09/25 10:03 Dose Route Admin Location Dispensed Lot Number Expiration Date NDC Show Design Supervisor 0.5 mL IM Left Deltoid 0.5 mL [id number] 08/15/25 10851-105-83 Vivo VIS Given Date VIS Provided VIS Publication Date 01/09/25 Single Vaccine 24 Eligibility Eligibility Date Funding Source Not [facility] Eligible 01/09/25 Private Coding Level of Care Code Est Pt Level 3 (62610) Est Pt Prev Care 40-64y(00577) Diagnoses Physical exam Z00.00 Microalbuminuria R80.9 Type 2 diabetes mellitus without complication, without long-term current use of insulin E11.9 Diabetes mellitus type: type 2 Diabetes mellitus correction insulin use: without correction use Diabetes mellitus complication status: without complication Time Spent (min) 31 Assessment & Plan Assessment & Plan (1) Physical exam: Code(s): Z00.00 - Encounter for general adult medical examination without abnormal findings Category: Medical (2) Microalbuminuria: Code(s): R80.9 - Proteinuria, unspecified Category: Medical (3) Diabetes mellitus: Code(s): E11.9 - Type 2 diabetes mellitus without complications Category: Medical Qualifiers: Diabetes mellitus type: type 2 Diabetes mellitus termite control technician insulin use: without termite control technician use Diabetes mellitus complication status: without complication Qualified Code(s): E11.9 - Type 2 diabetes mellitus without complications Plan Plan 1. Physical exam Referred to Ophthalmology for diabetic eye exam yearly. Cologuard to be repeated in 2026. Flu vaccine administered today. 2. Uncontrolled Type 2 Diabetes Mellitus The patient's hemoglobin A1c is elevated at 8.6%, indicating suboptimal glycemic control. To improve control and avoid the need for insulin, the current oral medication will be increased from 3 to 4 tablets daily. The patient was counseled on lifestyle modifications, including reducing carbohydrate and sugar intake, and initiating an exercise regimen. Specific dietary advice was given to reduce the consumption of [id number]-wlo-[id number] in coffee, suggesting a switch to lower-fat alternatives like almond or 1% milk, or to decrease the number of cups consumed. 3. Microalbuminuria The patient has mild proteinuria, which requires monitoring and control. Management will focus on improving glycemic control and maintaining adequate blood pressure, which is currently acceptable at 138/74 mmHg. Orders: Orders AMB Hemoglobin A1c Today E11.9 - Type 2 diabetes mellitus without complications Microalbumin, Random (w Creat) 4 Months R80.9 - Proteinuria, unspecified Comprehensive [place]. Panel Fast 4 Months Z00.00 - Encounter for general adult medical examination without abnormal findings Influenza [id number] Immunization Today Z23 - Encounter for immunization Lipid Panel Today E78.5 - Hyperlipidemia, unspecified Lipid Panel 4 Months E78.5 - Hyperlipidemia, unspecified Vitamin D 25-OH Total 4 Months E55.9 - Vitamin D deficiency, unspecified Vitamin B12 and Folate 4 Months E53.8 - Deficiency of other specified B group vitamins Microalbumin, Random (w Creat) Today R80.9 - Proteinuria, unspecified Comprehensive [place]. Panel Fast Today E11.9 - Type 2 diabetes mellitus without complications Referrals Ophthalmology Referral E11.9 - Type 2 diabetes mellitus without complications Nephrology Referral R80.9 - Proteinuria, unspecified Medications: Changed From metformin 500 mg PO TID 90 days 270 tabs 3RF To metformin 1,000 mg (2 x 500 mg) PO BID 360 tabs 3RF 90 days
[2025-01-09 09:31] VITALS: BP 138/74; PULSE 75; RESP 18; O2SAT 98; BMI 36.1
--- OUTSIDE RECORDS SUMMARY | 2025-01-09 09:49 | XMS_ITS | Clinical Summary ---
Author Organization 175 [facility] Address [address] [place] [address] Phone Care Team Providers Care Plans Examiner Name Role Phone Shelby Seay MD Primary Care Provider [phone] Allergies No known active allergies Medications metFORMIN [...] Health Maintenance Due Date Last Done Comments Colorectal Cancer Screening: Colonoscopy 1978 Hepatitis B Vaccines (1 of 3 - 19+ 3-dose series) 1997 Pneumococcal Vaccine: Pediatrics (0 to 5 Years) and At-Risk Patients (6 to 49 Years) (1 of 2 - PCV) 1997 Cholesterol Screening (Lipid Panel) 01/15/2022 HIV Screening 01/15/2022 Hepatitis C Screening 01/15/2022 Social Influencers of Health Screening 01/15/2022 Depression Screening 02/17/2024 COVID-19 Vaccine ( season) 2024 12/19/2020, 06/09/2020, 05/19/2020 Influenza Vaccine (#1) 2024 , 12/29/2022, 12/23/2021, Additional history exists DTaP,Tdap,and Td Vaccines (2 - Td or Tdap) 01/03/2034 01/04/2024 RSV Immunization Adult Patients (1 - 1-dose 75+ series) 2053 HIB Vaccines Aged Out No longer eligi [...] this topic Insurance COMMERCIAL GENERIC Care Teams Plans Examiner Relationship Specialty Start Date End Date Shelby Seay MD 2 [facility] , [address] Physician Associ D/B/A: [facility] [place], [place] PCP - General 11/21/22
== END 2025-01-09 10:10 | disposition home or self-care (01) ==
LOC: HO.HMCH 09:02
PROVIDERS: PCP Internal Medicine; Visit Provider Internal Medicine
DX: Z00.00 Encounter for general adult medical examination without abnormal findings (principal); R80.9 Proteinuria, unspecified; E11.9 Type 2 diabetes mellitus without complications; Z23 Encounter for immunization

== ENCOUNTER → 2025-01-09 09:02 | Outpatient (BNVA) | payer OTHER, SELFPAY | PROVIDERS: PCP Internal Medicine; Visit Provider Internal Medicine | DX: Z00.00 Encounter for general adult medical examination without abnormal findings (principal); E11.9 Type 2 diabetes mellitus without complications; E78.5 Hyperlipidemia, unspecified; R80.9 Proteinuria, unspecified; E55.9 Vitamin D deficiency, unspecified; Z23 Encounter for immunization | CPT/HCPCS: 83036; 90471; 90656; 99212; 99396 ==

== ENCOUNTER 2025-01-23 09:27 | Outpatient (REF) | payer OTHER, SELFPAY ==
[2025-01-23 10:28] LABS: Alanine Aminotransferase 29 U/L (0-40); Albumin Level 4.6 g/dL (3.5-5.0); Alkaline Phosphatase 74 U/L (39-117); Anion Gap 11 (12-20); Aspartate Amino Transferase 28 U/L (5-37); Blood Urea Nitrogen 16 mg/dL (9-16); Calcium 9.3 mg/dL (8.4-10.2); Carbon Dioxide 27 mmol/L (22-29); Chloride 106 mmol/L (96-108); Cholesterol 116 mg/dL (<200); Estimated Glomerular Filt Rate > 60; HDL Cholesterol 30 mg/dL (>40); Potassium 4.1 mmol/L (3.3-5.1); Sodium 140 mmol/L (135-145); Total Protein 7.1 g/dL (6.5-8.0); Triglycerides 103 mg/dL (<150)
[2025-01-23 10:44] LABS: Microalbum/Creatinine Ratio Ur 76.5 ug/mg cr (<30)
== END 2025-01-23 09:28 | disposition home or self-care (01) ==
LOC: HO.LAB 09:27
PROVIDERS: PCP Internal Medicine; Visit Provider Internal Medicine
DX: E11.9 Type 2 diabetes mellitus without complications (principal); E78.5 Hyperlipidemia, unspecified; E55.9 Vitamin D deficiency, unspecified; R80.9 Proteinuria, unspecified
CPT/HCPCS: 36415; 80053; 80061; 82043; 82306; 82570

== ENCOUNTER 2025-02-13 13:11 | Outpatient (AMB) | payer OTHER, SELFPAY ==
[2025-02-13 13:23] VITALS: BP 140/90; PULSE 61; O2SAT 97; BMI 36.0
--- NOTE | 2025-02-13 13:23 | HO.NEPHOV ---
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 Diabetes mellitus: since past 6-7 years, on metformin 1000 mg. Last A1c 8.6% Hypertension: for a longtime, on lisinopril 10 mg PFSH Medical History Dyslipidemia Callus of foot Obesity (BMI 35.0-39.9 without comorbidity) Diabetes mellitus Essential hypertension Surgical History No pertinent past surgical history Family History Father Bone cancer Diabetes Hypertension Mother Diabetes Hypertension Social History Housing: House Alcohol intake: current Alcohol intake frequency: holidays/special occasions only Alcohol type: beer Patient Tobacco Use Status: Current everyday Tobacco user Tobacco use type: Cigarette Cigarette Packs Per Day: 1 e-Cigarette/Vaping Use: Never Used Second Hand Smoke Exposure: No service: No Current occupational status: employed Current occupational exposures/hazards: No Cognitive needs: No Hearing needs: No Vision needs: No Review of Systems Const Details: Const : no body aches, no chills, no excessive sweating and no fatigue Eyes: no blurry vision and no change in vision ENT: no bleeding gums and no change in voice, no dizziness Card: no chest pain, no shortness of breath, no orthopnea, no PND Resp: no cough, no excessive phlegm production, no SOB GI: no abdominal pain and no nausea, no vomiting : no hematuria, no urinary frequency and no difficulty voiding Musc: no abnormal gait, no bone pain Neuro: no abnormal movements, no weakness, no dizziness, no abnormal gait and no behavioral changes Psych: no behavioral changes and no change in appetite Endo: no change in body appearance, no cold intolerance, no excessive sweating and no fatigue Physical Exam General: not in any acute distress, comfortable, sitting on the chair Nutritional Appearance: well nourished and weight Eyes: normal position, no icterus Neck: No lymphadenopathy, no thyromegaly Resp: bilateral air entry equal, no added sounds present Cardio: normal S1, S2 heard, no murmur heard, no edema GI: soft, nontender, no guarding, no hepatosplenomegaly : bladder normal to inspection, bladder normal to palpation, no renal angle tenderness Skin: no rashes or lesions noted and elasticity normal Neuro: oriented to person, oriented to place, oriented to time and moves all extremities Results Reviewed Nephrology Results: Sodium, (135-145) 140 mmol/L 01/23/25 Potassium, (3.3-5.1) 4.1 mmol/L 01/23/25 Chloride, (96-108) 106 mmol/L 01/23/25 Carbon Dioxide, (22-29) 27 mmol/L 01/23/25 BUN, (9-16) 16 mg/dL 01/23/25 Creatinine, (0.5-1.4) 0.64 mg/dL 01/23/25 Calcium, (8.4-10.2) 9.3 mg/dL 01/23/25 Urine Creatinine 184.26 mg/dL 01/23/25 Renal US 03/06/21 Assessment & Plan Assessment & Plan (1) Microalbuminuria: Code(s): R80.9 - Proteinuria, unspecified Category: Medical (2) Obesity (BMI 35.0-39.9 without comorbidity): Code(s): E66.9 - Obesity, unspecified Category: Medical Plan Chronic kidney disease stage IIA2 : - patient has 76.5 mg/gram of proteinuria possibly secondary to diabetic kidney disease versus obesity. - no family history of CKD, + history of renal stones in the past- 3 times so far last i 2021, NSAID use. - creatinine 0.64, GFR >60 - urine microalbumin creatinine ratio:76.5 - will get urinalysis - Renal ultrasound in 2021 showing 11.8cm right kidney, 12.4cm left kidney - avoid nephrotoxic medications not limited to NSAIDs, contrast etc. - advised the patient to lose weight, benefits of plant based diet, adequate blood pressure control, stop smoking well explained to patient - will get hepatitis panel, HIV, LEONEL, ANCA, SPEP, UPEP, serum free light chains, PLA2R with next set of labs. - please start the patient on jardiance if the sugars are on next PCP visit, lsat A1c was 8.6 and metformin was increased to 1000mg BID. Explained him that loosing weight would help control his sugars and proteinuria as well. Referral for weight management clinic placed. Hypertension: - target blood pressures less than 130/90 mm Hg - hold lisinopril 10 mg, we will increase to 20 mg daily and will quantify proteinuria in 3 months. This note is constructed using voice recognition software. While every effort has been made to ensure accuracy medical transcription editor errors may have been included. Orders: Orders Basic Metabolic Panel 3 Months E66.9 - Obesity, unspecified, R80.9 - Proteinuria, unspecified Vitamin D 25-OH Total 3 Months E66.9 - Obesity, unspecified, R80.9 - Proteinuria, unspecified Immunofixation Pnl, Serum 3 Months E66.9 - Obesity, unspecified, R80.9 - Proteinuria, unspecified Complement C4 3 Months E66.9 - Obesity, unspecified, R80.9 - Proteinuria, unspecified UA and rflx microscopic 3 Months E66.9 - Obesity, unspecified, R80.9 - Proteinuria, unspecified Microalbumin, Random (w Creat) 3 Months E66.9 - Obesity, unspecified, R80.9 - Proteinuria, unspecified Protein Creatinine Ratio, Ur 3 Months E66.9 - Obesity, unspecified, R80.9 - Proteinuria, unspecified Parathyroid Hormone Intact 3 Months E66.9 - Obesity, unspecified, R80.9 - Proteinuria, unspecified Hepatitis B,C Profile 3 Months E66.9 - Obesity, unspecified, R80.9 - Proteinuria, unspecified HIV Ab/Ag 3 Months E66.9 - Obesity, unspecified, R80.9 - Proteinuria, unspecified LEONEL Reflex Titer and Pattern 3 Months E66.9 - Obesity, unspecified, R80.9 - Proteinuria, unspecified ANCA Vasculitides 3 Months E66.9 - Obesity, unspecified, R80.9 - Proteinuria, unspecified Phospholipase A2 Receptor Pnl 3 Months E66.9 - Obesity, unspecified, R80.9 - Proteinuria, unspecified [place]/Lambda Light Chain Serum 3 Months E66.9 - Obesity, unspecified, R80.9 - Proteinuria, unspecified Complement C3 3 Months E66.9 - Obesity, unspecified, R80.9 - Proteinuria, unspecified Referrals Medical Weight Management Referral R80.9 - Proteinuria, unspecified Medications: New lisinopril 20 mg PO DAILY 30 tabs 5RF Discontinued lisinopril Discontinued Reason: Doctor's Order 10 mg PO DAILY 90 days 90 tabs 3RF Coding Level of Care Code New Pt Level 4 (76084) Diagnoses Microalbuminuria R80.9 Obesity (BMI 35.0-39.9 without comorbidity) E66.9
--- OUTSIDE RECORDS SUMMARY | 2025-02-13 15:12 | XMS_ITS | Clinical Summary ---
Author Organization [address] [facility] Address [address] [place] [id number] Phone Care Team Providers Care Maintenance Worker Name Role Phone Shelby Seay MD Primary [...] this topic Insurance [employer]IC Care Teams Maintenance Worker Relationship Specialty Start Date End Date Shelby Seay MD 2 [facility] , [address] Physician Associ D/B/A: [facility] [place], [place] PCP - General 11/21/22
== END 2025-02-13 13:49 | disposition home or self-care (01) ==
LOC: HO.HKA 13:12
PROVIDERS: PCP Internal Medicine; Referring Provider Internal Medicine; Visit Provider Internal Medicine Critical Care Medicine
DX: R80.9 Proteinuria, unspecified (principal); E66.9 Obesity, unspecified
CPT/HCPCS: 99204

== ENCOUNTER → 2025-02-13 13:11 | Outpatient (BNVA) | payer OTHER, SELFPAY | PROVIDERS: PCP Internal Medicine; Referring Provider Internal Medicine; Visit Provider Internal Medicine Critical Care Medicine | DX: I12.9 Hypertensive chronic kidney disease with stage 1 through stage 4 chronic kidney disease, or unspecified chronic kidney disease (principal); E11.22 Type 2 diabetes mellitus with diabetic chronic kidney disease; N18.2 Chronic kidney disease, stage 2 (mild); Z79.84 Long term (current) use of oral hypoglycemic drugs; Z79.899 Other long term (current) drug therapy; E66.9 Obesity, unspecified; Z68.36 Body mass index [BMI] 36.0-36.9, adult; F17.210 Nicotine dependence, cigarettes, uncomplicated; Z71.6 Tobacco abuse counseling | CPT/HCPCS: 99202 ==